=== PATIENT | male | born 1940 | race Caucasian/White ===

== ENCOUNTER → 2023-12-31 18:36 | Outpatient (REF) | payer OTHER, SELFPAY | LOC: MRI 3T 18:36 | PROVIDERS: ATTENDING PHYSICIAN Family Medicine | DX: R47.01 Aphasia (principal); G45.9 Transient cerebral ischemic attack, unspecified | CPT/HCPCS: 70551 ==

== ENCOUNTER 2024-01-14 13:06 | Emergency (ER) | payer OTHER, SELFPAY ==
[2024-01-14 13:07] VITALS: BP 121/84
[2024-01-14 13:11] LABS: Glucose - Point of Care 101 mg/dl (70-99)
[2024-01-14 13:27] VITALS: BMI 31.9
[2024-01-14 13:31] VITALS: BP 156/80
[2024-01-14 13:49] LABS: % Basophils 0.6 % (0-2); % Eosinophils 1.6 % (0-6); % Immature Granulocytes 0.2 % (0-0.5); % Lymphocytes 15.8 % (20.5-51.1); % Monocytes 9.2 % (1.7-9.3); % Neutrophils 72.6 % (42.2-75.2); Absolute Basophils 0.1 10^3/uL (0-0.2); Absolute Eosinophils 0.1 10^3/uL (0-0.7); Absolute Lymphocytes 1.3 10^3/uL (1.2-3.4); Absolute Monocytes 0.8 10^3/uL (0.1-0.6); Hematocrit 44.5 % (39.0-52.0); Hemoglobin 15.6 g/dL (13.0-18.0); Mean Corp Hgb Conc. 35.1 g/dL (33.0-37.0); Mean Corpuscular Hgb 31.1 pg (27.0-31.0); Mean Corpuscular Volume 88.6 fL (80.0-94.0); Mean Platelet Volume 10.2 fL (7.4-10.4); Nucleated Red Blood Cells % 0 % (-); Platelet Count 186 10^3/uL (130-400); Red Blood Cell Count 5.02 10^6/uL (4.70-6.10); Red Cell Dist. Width 12.9 % (11.5-14.5); White Blood Cell Count 8.3 10^3/uL (4.8-10.8)
[2024-01-14 14:00] VITALS: BP 159/77
[2024-01-14 14:04] LABS: ALT (SGPT) 28 U/L (0-50); AST (SGOT) 29 U/L (17-59); Albumin 3.9 g/dl (3.5-5.0); Alkaline Phosphatase 84 U/L (38-126); Blood Urea Nitrogen 21 mg/dl (9-20); Calcium 9.2 mg/dl (8.4-10.2); Carbon Dioxide 25 mmol/L (22-30); Chloride 103 mmol/L (98-107); Estimated Creatinine Clearance 57 ml/min; Glucose 115 mg/dl (70-99); Potassium 4.4 mmol/L (3.5-5.1); Sodium 136 mmol/L (135-145); Total Bilirubin 0.8 mg/dl (0.2-1.3); Total Protein 6.6 g/dl (6.3-8.2); eGFR > 60.00
--- NOTE | 2024-01-14 14:30 | ED.CVA ---
History of Present Illness
General
Chief Complaint: CVA/TIA Symptoms
Time Seen by Provider: 01/14/24 13:38
Onset of Stroke Symptoms
Onset of symptoms known: Yes
Date of onset of symptoms: 01/14/24
History of Present Illness
History of Present Illness:
83-year-old female presents the emergency department for evaluation of an acute onset of dysarthria and aphasia that began earlier this morning lasting approximately 15 minutes. He had a similar episode 3 weeks ago and was seen by his primary care
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 He also had a similar TIA several months back while in [place] and had a carotid Doppler ultrasound that was reportedly
negative. Patient is scheduled to see neurology next week. As a result of the most recent event patient's primary care physician has him on a 1 month course of dual antiplatelet therapy with Plavix and aspirin. Patient currently feels fine and
wants to go home. Denies any current headaches, chest pain, or extremity paresthesias.
Past History
Past History
ED Past Medical History: HTN and Other (BPH)
ED Past Surgical History: Orthopedic and Other (Herniorrhaphy)
Social History
Tobacco: Non-smoker
Personal:
Review of Systems
Review of Systems
Allergies reviewed?: Yes
All Other Systems: ROS reviewed and negative except as documented in HPI and ROS
Phy Exam
Physical Exam
Physical Exam:
GEN: Well appearing, NAD, WDWN
HEENT: Oral mucosa moist, no scleral icterus, no nasal congestion
Cardiac: Regular rate and rhythm, no murmurs
Lung: No respiratory distress, no tachypnea
MSK: No gross deformity or injuries
Skin: Good color, no pallor or jaundice, no rashes
Neuro: AO x3; CN II-XII grossly intact. BUE strength 5/5 in all olmos, sensation intact and symmetric. BLE strength 5/5 in all olmos, sensation intact and symmetric
Psych: Calm, cooperative
Course
Orders/Labs/Results
Orders:
Orders
01/14/24 13:39
Complete Blood Count/With Diff Urgent
Comprehensive Metabolic Panel Urgent
01/14/24 14:16
CT Head & Neck Angio W/wo IV Urgent
Comment:
Reason For Exam: TIA symptoms
Abnormal Lab Results
01/14/24 01/14/24
13:10 13:39
MCH 31.1 H pg
(27.0-31.0)
Absolute Monos (auto) 0.8 H 10^3/uL
(0.1-0.6)
Lymphocytes % 15.8 L %
(20.5-51.1)
BUN 21 H mg/dl
(9-20)
Glucose 115 H mg/dl
(70-99)
POC Glucose 101 H mg/dl
(70-99)
01/14/24 13:39
01/14/24 13:39
Vital Signs
Initial and Last Documented VS:
Initial Vital Signs
Temp Pulse Resp BP Pulse Ox
97.8 F 80 18 121/84 95
01/14/24 13:07 01/14/24 13:07 01/14/24 13:07 01/14/24 13:07 01/14/24 13:07
Last Documented Vital Signs
Temp Pulse Resp BP Pulse Ox
97.8 F 71 16 168/72 97
01/14/24 13:07 01/14/24 16:15 01/14/24 16:15 01/14/24 16:00 01/14/24 16:15
MDM/Problems Addressed
MDM/Problems Addressed:
Patient had no further recurrence of symptoms while in emergency department. CT of the head and neck was obtained to evaluate for vascular structures and this showed no evidence for vascular disease. The patient is currently on dual antiplatelets
as well as lipid-lowering agents. Do not see any indication for repeated admission to the hospital for further workup given recency of brain MRI. He will follow-up as an outpatient with neurology
*Critical Care Note
Total Time (30-74mins, 75-104mins- exclusive of procedures): Not Applicable
ED Attending Note
-
Portions of this chart may have been created with voice recognition software.� Occasional wrong word or��sound alike� substitutions may have occurred due to the inherent limitations of voice recognition software.
Discharge Plan
Departure
Patient Disposition: Home (Routine Discharge)
Date of Disposition: 01/14/24
Time of Disposition: 17:15
Patient with high blood pressure during this ER visit?: No
Discharge Problem:
TIA (transient ischemic attack)
Instructions: Transient Ischemic Attack (DC)
Prescriptions:
No Action
terazosin 5 MG capsule
5 mg PO BID
aspirin [Adult Low Dose Aspirin] 81 MG tablet,delayed release (DR/EC)
81 mg PO DAILY
metformin 500 mg Tablet
500 mg PO DAILY
atorvastatin [Lipitor] 10 mg Tablet
10 mg PO DAILY
amlodipine [Norvasc] 5 mg Tablet
5 mg PO QPM
nitroglycerin [Nitrostat] 0.4 mg Tablet, Sublingual
0.4 mg SUBLINGUAL [id number] PRN (Reason: chest pain)
bisacodyl [Dulcolax (bisacodyl)] 5 mg Tablet,Delayed Release (Dr/Ec)
10 mg PO DAILYPRN PRN (Reason: constipation)
finasteride 5 mg Tablet
5 mg PO QPM
isosorbide mononitrate 30 mg Tablet Extended Release 24 Hr
30 mg PO DAILY 30 Days Qty: 30 0RF
pantoprazole 40 mg Tablet,Delayed Release (Dr/Ec)
40 mg PO DAILY 30 Days Qty: 30 0RF
metoprolol succinate 25 mg Tablet Extended Release 24 Hr
25 mg PO DAILY 30 Days Qty: 30 0RF
Referrals:
Emmanuel Josue MD [Family Provider] -
Activity Restrictions/Additional Instructions:
Continue with follow up with neurology as planned
Interventions
Interventions:
*Risk Screen - Suicide Last Done: 01/14/24 13:27
*General Assessment Last Done: 01/14/24 13:07
*Neglect/Abuse Screening Last Done: 01/14/24 13:27
*ED COVID-19 Vaccine History Last Done: 01/14/24 13:12
ED- Pulmonary Assessment Last Done: 01/14/24 13:27
ED- Neurological Assessment Last Done: 01/14/24 13:27
ED- Cardiac Assessment Last Done: 01/14/24 13:27
ED Swallowing Screen Last Done: 01/14/24 13:27
Discharge Date and Time
Print Language: AMHARIC
[2024-01-14 15:00] VITALS: BP 151/72
[2024-01-14 16:00] VITALS: BP 168/72
== END 2024-01-14 17:30 | disposition home or self-care (01) ==
LOC: EMR 13:06
PROVIDERS: EMERGENCY PHYSICIAN Emergency Medicine; FAMILY PHYSICIAN Family Medicine
DX: G45.9 Transient cerebral ischemic attack, unspecified (principal); I10 Essential (primary) hypertension; N40.0 Benign prostatic hyperplasia without lower urinary tract symptoms
CPT/HCPCS: 99284; 70496; 70498; 80053; 82962; 85025; Q9967

== ENCOUNTER → 2025-03-08 11:58 | Outpatient (REF) | payer OTHER, SELFPAY | LOC: RAD 11:58 | PROVIDERS: ATTENDING PHYSICIAN Family Medicine | DX: E44.1 Mild protein-calorie malnutrition (principal) | CPT/HCPCS: 71046 ==

== ENCOUNTER → 2025-04-30 09:33 | Outpatient (REF) | payer OTHER, SELFPAY | LOC: RAD 09:33 | PROVIDERS: ATTENDING PHYSICIAN Family Medicine | DX: E44.1 Mild protein-calorie malnutrition (principal) | CPT/HCPCS: 74177; Q9967 ==

== ENCOUNTER 2025-06-08 16:15 | Emergency (ER) | payer OTHER, SELFPAY ==
[2025-06-08 16:51] VITALS: BP 170/77
[2025-06-08 18:55] VITALS: BP 152/76
[2025-06-08 19:00] VITALS: BP 144/69
[2025-06-08 19:27] VITALS: BP 162/78
[2025-06-08 19:31] VITALS: BMI 30.2
[2025-06-08 20:00] VITALS: BP 159/77
--- NOTE | 2025-06-08 20:30 | ED.GENMED ---
History of Present Illness
General
Chief Complaint: Fall
Time Seen by Provider: 06/08/25 18:40
History of Present Illness
History of Present Illness:
Dieter is a 85M with PMH of HTN who presents after a mechanical trip and fall at [facility] today. Denies LOC or head strike. Reports that he struck his chest wall. Pain reasonably well controlled on arrival.
Past History
Past History
ED Past Medical History: HTN and Other (BPH)
ED Past Surgical History: Orthopedic and Other (Herniorrhaphy)
Social History
Tobacco: Non-smoker
Personal:
Phy Exam
General Physical Exam
General Presentation: well appearing and no apparent distress
General Skin: warm and dry
General Habitus: normal
General Mental: alert
General Hydration: appears well hydrated
ENT Exam
ENT Exam: EOMI, pharynx normal, neck supple and normocephalic
Eye Exam
Eye Exam: PERRL, cornea clear and conjunctiva normal
Cardiovascular Exam
Cardiovascular Exam: regular rate/rhythm, no edema, no murmur and normal peripheral pulses
Pulmonary Exam
Pulmonary Exam: lungs clear, no respiratory distress, no rales, no crackles, no rhonchi, no stridor, no wheezing and no cough
Gastrointestinal Exam
Gastrointestinal Exam: normal bowel sounds, non tender, soft, no organomegaly, no pulsatile mass and non distended
Neurological Exam
Neurological Exam: alert, oriented x3, no motor deficits and speech normal
Musculoskeletal Exam
Musculoskeletal Exam: full ROM, no edema and other (anterior chest wall pain over sternum)
Skin Exam
Skin Exam: normal color, warm/dry, no rash and no petechia
Psychiatric Exam
Psychiatric Exam: normal mood/affect
Course
Orders/Labs/Results
Orders:
Orders
06/08/25 16:55
EKG [Electrocardiogram (*1)] Urgent
Reason for Study: Chest Pain
EKG- Treatment ONCE
06/08/25 16:57
Ribs, Right 3 View W/PA Chest [CR Ribs-right 3 Vw W/pa Chest*] Urgent
Comment:
Reason For Exam: fall injury pain
06/08/25 20:49
Incentive Spirometry [Rx Incentive Spirometry] [RESP] Urgent
Frequency: q1h while awake
Vital Signs
Initial and Last Documented VS:
Initial Vital Signs
Temp Pulse Resp BP Pulse Ox
37.0 C 90 20 170/77 95
06/08/25 16:51 06/08/25 16:51 06/08/25 16:51 06/08/25 16:51 06/08/25 16:51
Last Documented Vital Signs
Temp Pulse Resp BP Pulse Ox
37.0 C 82 14 159/77 97
06/08/25 16:51 06/08/25 20:00 06/08/25 20:00 06/08/25 20:00 06/08/25 20:37
MDM/Problems Addressed
Differential Diagnosis Includes:
EKG completed in triage shows normal sinus rhythm with PACs unchanged from previous. Lab work deferred as patient is hemodynamically stable. Prior to my evaluation a rib x-ray series was completed based on triage protocols and was read as negative
for any acute fracture. I discussed this with the patient and educated that x-rays without a true lateral or not great showing sternal fractures which is where his pain is. I offered to complete a chest CT to rule out any sternal fracture.
However his pain is well-controlled and he like to avoid any CT scans and has elected to be discharged home. Given that his EKG is without abnormality think that this is a reasonable plan. Will send home with an I-S. Return to the ER for
worsening pain or difficulty taking deep breath.
*Pulse Oximetry
SaO2: 97
Oxygen Mode of Delivery: Room air
Patient hypoxic: no
*Critical Care Note
Total Time (30-74mins, 75-104mins- exclusive of procedures): Not Applicable
ED Attending Note
-
Portions of this chart may have been created with voice recognition software.� Occasional wrong word or��sound alike� substitutions may have occurred due to the inherent limitations of voice recognition software.
Discharge Plan
Departure
Patient Disposition: Home (Routine Discharge)
Date of Disposition: 06/08/25
Time of Disposition: 20:46
Patient with high blood pressure during this ER visit?: Yes
Discharge Problem:
Chest pain, Pain in rib, Fall
Instructions: Rib injury in adults
Prescriptions:
No Action
terazosin 5 MG capsule
5 mg PO BID
aspirin [Adult Low Dose Aspirin] 81 MG tablet,delayed release (DR/EC)
81 mg PO DAILY
metformin 500 mg Tablet
500 mg PO DAILY
atorvastatin [Lipitor] 10 mg Tablet
10 mg PO DAILY
amlodipine [Norvasc] 5 mg Tablet
5 mg PO QPM
nitroglycerin [Nitrostat] 0.4 mg Tablet, Sublingual
0.4 mg SUBLINGUAL [id number] PRN (Reason: chest pain)
bisacodyl [Dulcolax (bisacodyl)] 5 mg Tablet,Delayed Release (Dr/Ec)
10 mg PO DAILYPRN PRN (Reason: constipation)
finasteride 5 mg Tablet
5 mg PO QPM
isosorbide mononitrate 30 mg Tablet Extended Release 24 Hr
30 mg PO DAILY 30 Days Qty: 30 0RF
pantoprazole 40 mg Tablet,Delayed Release (Dr/Ec)
40 mg PO DAILY 30 Days Qty: 30 0RF
metoprolol succinate 25 mg Tablet Extended Release 24 Hr
25 mg PO DAILY 30 Days Qty: 30 0RF
Referrals:
Lorenza Jules MD [Family Provider, Family Practice]
Activity Restrictions/Additional Instructions:
No evidence of rib fractures were seen in your chest x-ray. Sternum was not completely visualized and discussion was had regarding completion of CT scan you have declined. If pain persists or you begin to develop difficulty breathing or taking a
deep breath that is important that you return to the emergency room. May take Tylenol as needed for pain.
Interventions
Interventions:
*Risk Screen - Suicide Last Done: 06/08/25 16:51
*General Assessment Last Done: 06/08/25 16:51
*Neglect/Abuse Screening Last Done: 06/08/25 16:51
*ED COVID-19 Vaccine History Last Done: 06/08/25 19:30
*ED Influenza Vaccine History Last Done: 06/08/25 19:30
[facility] Fall Risk Assessment Tool Last Done: 06/08/25 19:30
*Nursing Disposition Last Done: 06/08/25 21:02
ED-Musculoskeletal Assessment Last Done: 06/08/25 19:28
ED- Neurological Assessment Last Done: 06/08/25 19:28
ED-Skin Assessment Last Done: 06/08/25 19:26
Discharge Date and Time
Discharge Date/Time: 06/08/25 21:03
Print Language: ESTONIAN
== END 2025-06-08 21:03 | disposition home or self-care (01) ==
LOC: EMR 16:15
PROVIDERS: EMERGENCY PHYSICIAN Student in an Organized Health Care Education/Training Program; FAMILY PHYSICIAN Family Medicine
DX: R07.89 Other chest pain (principal); R07.81 Pleurodynia; W01.10XA Fall on same level from slipping, tripping and stumbling with subsequent striking against unspecified object, initial encounter; N40.0 Benign prostatic hyperplasia without lower urinary tract symptoms; I10 Essential (primary) hypertension
CPT/HCPCS: 99283; 71101; 93005